=== PATIENT | female | born 1940 | race Caucasian/White ===

== ENCOUNTER 2017-06-16 01:31 | Observation (INO) | payer MEDICARE ==
[~2017-06-16] VITALS: Ht 157.5 cm; Wt 68.7 kg
[2017-06-16] VITALS (23 sets, daily range): BP systolic 105–154; BP diastolic 54–97; PULSE 44–142; RESP 16–32; TEMP 97.4–97.9; O2SAT 96–100
[~2017-06-16 01:31] MED LIST: ASPI81 PO; BENI40TA30 PO; COUM5TAB PO; HYDR12.56 PO; PRED20 PO; PROP150T PO; SYNT25TA PO; ZITH250T PO; ZOCO40TA PO
[2017-06-16] MEDS ORDERED: DILTIAZEM HCL 25 MG/5 ML VIAL ONE (01:41)
[2017-06-16] MEDS ORDERED: DILTIAZEM HCL 25 MG/5 ML VIAL IV PUSH ONE (01:45)
[2017-06-16] MEDS ORDERED: SODIUM CHLORIDE 0.9% FLUSH 10 ML FLUSH IV FLUSH PRN ×2 (01:45→03:45)
[2017-06-16] MEDS ORDERED: DILTIAZEM INJ 125 MG in SODIUM CHLORIDE 0.9% INJ 100 ML IV PRN (01:45)
--- NOTE | 2017-06-16 01:58 | PD ---
HPI Chief Complaint: Cardiac Complaint Time Seen by Provider: 01:41 Travel History International Travel<30 days: No Contact w/Intl Traveler<30days: No Traveled to known affect area: No History of Present Illness HPI The patient is a 76-year-old female with a history of paroxysmal atrial fibrillation who at 1130 noticed atrial fibrillation tonight. Normally, she can convert the atrial fibrillation into sinus rhythm by doing vasovagal maneuvers. It did not work tonight. The patient states she takes her medications correctly. She does take Coumadin and Rythmol. The only new medicine the patient takes is atorvastatin. He states she had an episode last night and one tonight. The episode tonight would not break to normal sinus rhythm. The episode last night converted quickly to normal sinus rhythm according to the patient. PFSH Past Medical History Atrial Fibrillation: Yes High Cholesterol: Yes Hypertension: Yes Immunizations Current: Yes Past Surgical History Appendectomy: Yes Cholecystectomy: Yes Social History Alcohol Use: Yes (WINE) Tobacco Use: No (QUIT 45 YEARS AGO) Substance Use: No Allergies-Medications (Allergen,Severity, Reaction): Coded Allergies: morphine (Unverified Allergy, Severe, VOMITING, 06/16/17) albuterol (Unverified Adverse Reaction, Severe, A-FIB, 06/16/17) aspirin (Unverified Adverse Reaction, Severe, AFIB, 06/16/17) caffeine (Unverified Adverse Reaction, Severe, AFIB, 06/16/17) Reported Meds & Prescriptions Reported Meds & Active Scripts Active Reported Bisoprolol (Bisoprolol Fumarate) 5 Mg Tab 5 Mg PO DAILY Atorvastatin (Atorvastatin Calcium) 40 Mg Tab 40 Mg PO HS Warfarin 5 Mg Tab 5 Mg PO DAILY Aspirin Low Dose (Aspirin) 81 Mg Chew 81 Mg CHEW DAILY Levothyroxine (Levothyroxine Sodium) 25 Mcg Tab 25 Mcg PO DAILY Losartan (Losartan Potassium) 100 Mg Tab 100 Mg PO DAILY Propafenone (Propafenone HCl) 150 Mg Tab 150 Mg PO Q8HR Glucosamine 1,500 Mg Tab 1,500 Mg PO DAILY Review of Systems Except as stated in HPI: all other systems reviewed are Neg Physical Exam Narrative GENERAL: The patient is alert, oriented 3 in apparent distress minimal with her palpitations and minimal shortness of breath. The blood pressure is 106/62 now, the original blood pressure 154/95. Heart rate initially 140, now 96. 96 % oximetry and respirations 20. SKIN: Focused skin assessment warm/dry. HEAD: Atraumatic. Normocephalic. EYES: Pupils equal and round. No scleral icterus. No injection or drainage. ENT: No nasal bleeding or discharge. Mucous membranes pink and moist. NECK: Trachea midline. No JVD. CARDIOVASCULAR: Regular rate and rhythm. No murmur appreciated. RESPIRATORY: No accessory muscle use. Clear to auscultation. Breath sounds equal bilaterally. GASTROINTESTINAL: Abdomen soft, non-tender, nondistended. Hepatic and splenic margins not palpable. MUSCULOSKELETAL: No obvious deformities. No clubbing. No cyanosis. No edema. NEUROLOGICAL: Awake and alert. No obvious cranial nerve deficits. Motor grossly within normal limits. Normal speech. PSYCHIATRIC: Appropriate mood and affect; insight and judgment normal. Data Data Last Documented VS Vital Signs Date Time Temp Pulse Resp B/P (MAP) Pulse Ox O2 Delivery O2 Flow Rate FiO2 06/16/17 02:06 110 114/79 06/16/17 02:00 20 06/16/17 01:55 100 Nasal Cannula 2.00 Orders Orders Diltiazem Inj (Cardizem Inj) (06/16/17 01:41) Ecg Monitoring (06/16/17 01:41) Blood Pressure (06/16/17 01:41) Iv Access Insert/Monitor (06/16/17 01:41) Oximetry (06/16/17 01:41) Vital Signs (06/16/17 01:41) Diltiazem Inj (Cardizem Inj) (06/16/17 01:45) Diltiazem Inj (Cardizem Inj) (06/16/17 01:45) Sodium Chloride 0.9% Flush (Ns Flush) (06/16/17 01:45) Electrocardiogram (06/16/17 01:58) Basic Metabolic Panel (Bmp) (06/16/17 01:58) B-Type Natriuretic Peptide (06/16/17 01:58) Complete Blood Count With Diff (06/16/17 01:58) Magnesium (Mg) (06/16/17 01:58) Prothrombin Time / Inr (Pt) (06/16/17 01:58) Troponin I (06/16/17 01:58) Oxygen Administration (06/16/17 01:58) Sodium Chloride 0.9% Flush (Ns Flush) (06/16/17 02:00) Chest, Pa & Lat (06/16/17 01:58) Place In Observation (06/16/17 ) Vital Signs (Adult) Q4H (06/16/17 03:43) Activity Oob With Assistance (06/16/17 03:43) Diet Heart Healthy (06/16/17 Breakfast) Sodium Chloride 0.9% Flush (Ns Flush) (06/16/17 03:45) Sodium Chloride 0.9% Flush (Ns Flush) (06/16/17 09:00) Acetaminophen (Tylenol) (06/16/17 03:45) Ondansetron Inj (Zofran Inj) (06/16/17 03:45) Basic Metabolic Panel (Bmp) (06/17/17 06:00) Complete Blood Count With Diff (06/17/17 06:00) Creatine Kinase (Cpk) (06/16/17 08:00) Creatine Kinase (Cpk) (06/16/17 14:00) Troponin I (06/16/17 08:00) Troponin I (06/16/17 14:00) Electrocardiogram (06/16/17 08:00) Electrocardiogram (06/16/17 14:00) Heparin Inj (Heparin Inj) (06/16/17 03:45) Naloxone Inj (Narcan Inj) (06/16/17 03:45) Docusate Sodium-Senna (Clarissa-Colace) (06/16/17 09:00) Magnesium Hydroxide Liq (Milk Of Magnesi (06/16/17 03:45) Sennosides (Senokot) (06/16/17 03:45) Bisacodyl Supp (Dulcolax Supp) (06/16/17 03:45) Lactulose Liq (Lactulose Liq) (06/16/17 03:45) Aspirin Chew (Aspirin Chew) (06/16/17 09:00) Atorvastatin (Lipitor) (06/16/17 21:00) Levothyroxine (Synthroid) (06/16/17 09:00) Losartan (Cozaar) (06/16/17 09:00) Propafenone (Rythmol) (06/16/17 06:00) Warfarin (Coumadin) (06/16/17 09:00) (Nf) Bisoprolol (06/16/17 09:00) Admit Order (Ed Use Only) (06/16/17 03:47) Labs Laboratory Tests Test 06/16/17 02:00 White Blood Count 7.2 TH/MM3 Red Blood Count 4.58 MIL/MM3 Hemoglobin 13.8 GM/DL Hematocrit 42.6 % Mean Corpuscular Volume 92.9 FL Mean Corpuscular Hemoglobin 30.1 PG Mean Corpuscular Hemoglobin Concent 32.4 % Red Cell Distribution Width 13.0 % Platelet Count 266 TH/MM3 Mean Platelet Volume 8.9 FL Neutrophils (%) (Auto) 50.3 % Lymphocytes (%) (Auto) 39.6 % Monocytes (%) (Auto) 7.3 % Eosinophils (%) (Auto) 1.3 % Basophils (%) (Auto) 1.5 % Neutrophils # (Auto) 3.6 TH/MM3 Lymphocytes # (Auto) 2.9 TH/MM3 Monocytes # (Auto) 0.5 TH/MM3 Eosinophils # (Auto) 0.1 TH/MM3 Basophils # (Auto) 0.1 TH/MM3 CBC Comment DIFF FINAL Differential Comment Prothrombin Time 18.1 SEC Prothromb Time International Ratio 1.8 RATIO Blood Urea Nitrogen 18 MG/DL Creatinine 0.83 MG/DL Random Glucose 99 MG/DL Calcium Level 9.1 MG/DL Magnesium Level 2.2 MG/DL Sodium Level 140 MEQ/L Potassium Level 3.6 MEQ/L Chloride Level 104 MEQ/L Carbon Dioxide Level 28.7 MEQ/L Anion Gap 7 MEQ/L Estimat Glomerular Filtration Rate 67 ML/MIN Troponin I LESS THAN 0.02 NG/ML B-Type Natriuretic Peptide 111 PG/ML MDM Medical Decision Making Medical Screen Exam Complete: Yes Emergency Medical Condition: Yes Medical Record Reviewed: Yes Interpretation(s) The initial EKG showed atrial fibrillation with rapid ventricular response around 119. It is now 0313 and the patient's heart rate is 92. She is on a Cardizem drip at 5 mL's per hour. Her blood pressure is stable at 129/69. The troponin I is normal in the basic metabolic profile is normal except for a GFR of 67. The BNP is 111. The CBC is normal. The chest x-ray shows no acute cardiopulmonary disease. Differential Diagnosis Atrial fibrillation with rapid ventricular response, acute coronary syndrome, congestive heart failure Narrative Course The patient has atrial fibrillation and requires a Cardizem drip at a low level. There is no evidence of congestive heart failure or acute coronary syndrome Physician Communication Physician Communication I discussed the patient with Dr. Chandler, the patient will be admitted to her for 23 hour observation. Diagnosis Primary Impression: Atrial fibrillation with RVR Admitting Information Admitting Physician Requests: Observation Regan Mccarthy MD Jun 16, 2017 01:58
[2017-06-16] MEDS ORDERED: SODIUM CHLORIDE 0.9% FLUSH 10 ML FLUSH IVF PRN (02:00)
[2017-06-16 02:11] LABS: AUTOMATED NEUTROPHIL # 3.6 TH/MM3 (1.8-7.7); BASOPHIL # 0.1 TH/MM3 (0-0.2); BASOPHIL % 1.5 % (0.0-2.0); EOSINOPHIL # 0.1 TH/MM3 (0-0.4); EOSINOPHIL % 1.3 % (0.0-4.0); HEMATOCRIT 42.6 % (35.0-46.0); HEMOGLOBIN 13.8 GM/DL (11.6-15.3); LYMPH % 39.6 % (9.0-44.0); LYMPHOCYTE # 2.9 TH/MM3 (1.0-4.8); MEAN CELL VOLUME 92.9 FL (80.0-100.0); MEAN CORPUSCULAR HEMOGLOBIN 30.1 PG (27.0-34.0); MEAN CORPUSCULAR HGB CONC 32.4 % (32.0-36.0); MEAN PLATELET VOLUME 8.9 FL (7.0-11.0); MONO % 7.3 % (0.0-8.0); MONOCYTE # 0.5 TH/MM3 (0-0.9); NEUT % 50.3 % (16.0-70.0); PLATELET COUNT 266 TH/MM3 (150-450); RED BLOOD COUNT 4.58 MIL/MM3 (4.00-5.30); WHITE BLOOD COUNT 7.2 TH/MM3 (4.0-11.0)
[2017-06-16 02:21] LABS: CHLORIDE 104 MEQ/L (98-107); SODIUM (NA) 140 MEQ/L (136-145)
[2017-06-16 02:24] LABS: BICARBONATE 28.7 MEQ/L (21.0-32.0); BLOOD UREA NITROGEN 18 MG/DL (7-18); CALCIUM 9.1 MG/DL (8.5-10.1); GLUCOSE,RANDOM 99 MG/DL (74-106); INTERNATIONAL NORMALIZED RATIO 1.8 RATIO; MAGNESIUM 2.2 MG/DL (1.5-2.5); PROTHROMBIN TIME - PATIENT 18.1 SEC (9.8-11.6)
[2017-06-16 02:28] LABS: CREATININE 0.83 MG/DL (0.50-1.00); GLOMERULAR FILTRATION RATE 67 ML/MIN (>89)
[2017-06-16 02:32] LABS: TROPONIN I LESS THAN 0.02 NG/ML (0.02-0.05)
--- NOTE | 2017-06-16 02:38 | RADRPT ---
EXAM DATE/TIME: 06/16/2017 02:12 [facility] COMPARISON: No previous studies available for comparison. INDICATIONS : Irregular heart rate for 3 hours MEDICAL HISTORY : Afib SURGICAL HISTORY : None. ENCOUNTER: Initial ACUITY: 1 day PAIN SCORE: 0/10 LOCATION: Bilateral chest FINDINGS: PA and lateral views of the chest demonstrate a normal-sized cardiac silhouette. There is no effusion , consolidation, or pneumothorax. The bones and soft tissues demonstrate no acute abnormality. There are degenerative changes of the thoracic spine. EKG lines overlie the patient. CONCLUSION: No acute cardiopulmonary abnormality is identified. Vijay Nelson MD on June 16, 2017 at 2:36 Board Certified Radiologist. This report was verified electronically.
[2017-06-16] MEDS ORDERED: LOSA100T PO (02:50)
[2017-06-16] MEDS ORDERED: ATOR40TA16 PO (02:50)
[2017-06-16] MEDS ORDERED: GLUC15009 PO (02:50)
[2017-06-16] MEDS ORDERED: WARF-23 PO (02:50)
[2017-06-16] MEDS ORDERED: PROP150T PO (02:50)
[2017-06-16] MEDS ORDERED: BISO5TAB5 PO (02:50)
[2017-06-16] MEDS ORDERED: ASPI81CH6 CHEW (02:50)
[2017-06-16] MEDS ORDERED: LEVO25TA4 PO (02:50)
[2017-06-16] MEDS ORDERED: ONDANSETRON HCL 4 MG/2 ML VIAL IVP PRN (03:45)
[2017-06-16] MEDS ORDERED: NALOXONE HCL 0.4 MG/ML AMP IV PUSH PRN (03:45)
[2017-06-16] MEDS ORDERED: LACTULOSE SYRUP 20 GM/30 ML CUP PO PRN (03:45)
[2017-06-16] MEDS ORDERED: BISACODYL 10 MG SUPP RECTAL PRN (03:45)
[2017-06-16] MEDS ORDERED: MAGNESIUM HYDROXIDE SUSP 30 ML CUP PO PRN (03:45)
[2017-06-16] MEDS ORDERED: SENNOSIDES 8.6 MG TAB PO PRN (03:45)
[2017-06-16] MEDS ORDERED: ACETAMINOPHEN 325 MG TAB PO PRN (03:45)
[2017-06-16] MEDS ORDERED: DO NOT ADM ANY ANTICOAGULANT DRUGS OTHER PRN (04:00)
[2017-06-16] MEDS ORDERED: HEPARIN SODIUM - SQ 10,000 UNITS/ML VIAL SQ SCH (06:00)
[2017-06-16] MEDS ORDERED: LEVOTHYROXINE SODIUM 25 MCG TAB PO SCH (06:00)
[2017-06-16] MEDS: PROPAFENONE HCL 150 MG TAB PO SCH ×2 (06:00→13:36)
[2017-06-16 08:38] LABS: TROPONIN I LESS THAN 0.02 NG/ML (0.02-0.05)
[2017-06-16] MEDS ORDERED: BISOPROLOL 5 MG PO SCH (09:00)
[2017-06-16] MEDS ORDERED: LOSARTAN 50 MG TAB PO SCH (09:00)
[2017-06-16] MEDS ORDERED: ASPIRIN 81 MG CHEW TAB CHEW SCH (09:00)
[2017-06-16] MEDS: DOCUSATE SODIUM 50 MG/SENNA 8.6 MG TAB PO SCH ×2 (09:26→19:36)
[2017-06-16] MEDS: SODIUM CHLORIDE 0.9% FLUSH 10 ML FLUSH IV FLUSH SCH ×2 (09:27→19:34)
[2017-06-16 10:31] LABS: MAGNESIUM 2.1 MG/DL (1.5-2.5)
--- NOTE | 2017-06-16 10:33 | HHI.HP ---
[facility] Nahum Page MD Admission Diagnosis Atrial fibrillation with rapid ventricular response Diagnoses: (1) Hypertension Diagnosis: Secondary (2) Osteoarthritis Diagnosis: Secondary (3) Hypercholesterolemia Diagnosis: Secondary (4) Chronic anticoagulation Diagnosis: Principal (5) Atrial fibrillation with RVR Diagnosis: Principal (6) Hypothyroidism Diagnosis: Secondary Chief Complaint: Palpitations that did not stop after vasovagal Travel History International Travel<30 Days: No Contact w/Intl Traveler <30 Da: No Traveled to Known Affected Are: No History of Present Illness Patient is a 76-year-old female with a history of paroxysmal atrial fibrillation who at 1130 last night noticed atrial fibrillation. Normally, she can convert the atrial fibrillation into sinus rhythm by doing vasovagal maneuvers, unfortunately this was not successful. It did not work tonight, so the patient decided to come to the emergency room for further evaluation. The patient states she takes her medications correctly. She does take Coumadin and Rythmol. The only new medicine the patient takes is atorvastatin. SHe states she had an episode last night and one tonight. The episode tonight would not break to normal sinus rhythm. The episode last night converted quickly to normal sinus rhythm according to the patient. The previous nights event was able to be broken with a vasovagal maneuver. The one last night was unable to be broken and therefore she is here in the emergency department and then therefore listed observation Had been on a Cardizem drip which has been stopped Dr. LEONARDO has been counseled of cardiology An echocardiogram will give Lovenox 70 mg subcu now since her INR is only 1.8 Review of Systems Constitutional: DENIES: Diaphoretic episodes, Fatigue, Fever, Weight gain, Weight loss, Chills, Dizziness, Change in appetite, Night Sweats Endocrine: DENIES: Abnorml menstrual pattern, Heat/cold intolerance, Polydipsia , Polyuria, Polyphagia Eyes: DENIES: Blurred vision, Diplopia, Eye inflammation, Eye pain, Vision loss , Photosensitivity Ears, nose, mouth, throat: DENIES: Tinnitus, Hearing loss, Vertigo, Nasal discharge, Oral lesions, Throat pain, Hoarseness, Ear Pain, Running Nose Respiratory: DENIES: Apneas, Cough, Snoring, Wheezing, Hemoptysis, Sputum production Cardiovascular: COMPLAINS OF: Palpitations, DENIES: Chest pain, Syncope, Dyspnea on Exertion, PND, Lower Extremity Edema, Orthopnea Gastrointestinal: DENIES: Abdominal pain, Black stools, Bloody stools, Constipation, Diarrhea, Nausea, Vomiting, Difficulty Swallowing Genitourinary: DENIES: Abnormal vaginal bleeding, Dysmenorrhea, Dyspareunia, Sexual dysfunction Musculoskeletal: DENIES: Joint pain, Muscle aches, Stiffness, Joint Swelling, Back pain, Neck pain Integumentary: DENIES: Abnormal pigmentation, Pruritus, Rash, Nail changes, Breast masses, Breast skin changes Hematologic/lymphatic: DENIES: Bruising, Lymphadenopathy Immunologic/allergic: DENIES: Eczema, Urticaria Neurologic: DENIES: Abnormal gait, Headache, Localized weakness, Paresthesias, Seizures, Speech Problems, Tremor Psychiatric: DENIES: Anxiety, Confusion, Mood changes, Depression, Hallucinations, Agitation, Suicidal Ideation, Homicidal Ideation Except as stated in HPI: all other systems reviewed are Neg Past Family Social History Past Medical History Atrial fibrillation paroxysmal hypothyroidism Chronic anticoagulation Osteoarthritis Past Surgical History History of sections Cholecystectomy Left total knee Right partial knee repair Bilateral carpal tunnel syndrome repair Cholecystectomy appendectomy Reported Medications Reported Meds & Active Scripts Active Reported Bisoprolol (Bisoprolol Fumarate) 5 Mg Tab 5 Mg PO DAILY Atorvastatin (Atorvastatin Calcium) 40 Mg Tab 40 Mg PO HS Warfarin 5 Mg Tab 5 Mg PO DAILY Aspirin Low Dose (Aspirin) 81 Mg Chew 81 Mg CHEW DAILY Levothyroxine (Levothyroxine Sodium) 25 Mcg Tab 25 Mcg PO DAILY Losartan (Losartan Potassium) 100 Mg Tab 100 Mg PO DAILY Propafenone (Propafenone HCl) 150 Mg Tab 150 Mg PO Q8HR Glucosamine 1,500 Mg Tab 1,500 Mg PO DAILY Allergies: Coded Allergies: morphine (Unverified Allergy, Severe, VOMITING, 06/16/17) albuterol (Unverified Adverse Reaction, Severe, A-FIB, 06/16/17) caffeine (Unverified Adverse Reaction, Severe, AFIB, 06/16/17) Active Ordered Medications Current Medications Diltiazem HCl (Cardizem Inj) 25 mg STK-MED ONCE .ROUTE ; Start 06/16/17 at 01:41 ; Stop 06/16/17 at 01:42; Status DC Diltiazem HCl 125 mg/Sodium Chloride 125 ml @ 5 mls/hr TITRATE PRN IV tachycardia Last administered on 06/16/17at 02:06; Start 06/16/17 at 01:45; Stop at 06:24; Status DC Diltiazem HCl (Cardizem Inj) 20 mg BOLUS ONCE IV PUSH Last administered on 06/16at 01:56; Start 06/16/17 at 01:45; Stop 06/16/17 at 01:46; Status DC Sodium Chloride (NS Flush) 2 ml UNSCH PRN IV FLUSH FLUSH AFTER USING IV ACCESS ; Start 06/16/17 at 01:45; Stop 06/16/17 at 04:03; Status DC Sodium Chloride (NS Flush) 2 ml UNSCH PRN IVF FLUSH AFTER USING IV ACCESS; Start 06/16/17 at 02:00; Stop 06/16/17 at 04:02; Status DC Sodium Chloride (NS Flush) 2 ml UNSCH PRN IV FLUSH FLUSH AFTER USING IV ACCESS ; Start 06/16/17 at 03:45 Sodium Chloride (NS Flush) 2 ml BID IV FLUSH Last administered on 06/16/17at 09: 27; Start 06/16/17 at 09:00 Acetaminophen (Tylenol) 650 mg Q4H PRN PO TEMP > 100.4 Last administered on 06/16at 07:14; Start 06/16/17 at 03:45 Ondansetron HCl (Zofran Inj) 4 mg Q6H PRN IVP NAUSEA OR VOMITING; Start at 03:45 Heparin Sodium (Porcine) (Heparin Inj) 5,000 units Q8HR SQ ; Start 06/16/17 at 06 :00; Stop 06/16/17 at 06:00; Status DC Naloxone HCl (Narcan Inj) 0.4 mg UNSCH PRN IV PUSH SEE LABEL COMMENTS; Start at 03:45 Senna/Docusate Sodium (Clarissa-Colace) 1 tab BID PO Last administered on 06/16/17at 09:26; Start 06/16/17 at 09:00 Magnesium Hydroxide (Milk Of Magnesia Liq) 30 ml Q12H PRN PO Mild constipation ; Start 06/16/17 at 03:45 Sennosides (Senokot) 17.2 mg Q12H PRN PO Moderate constipation; Start 06/16/17 at 03:45 Bisacodyl (Dulcolax Supp) 10 mg DAILY PRN RECTAL SEVERE CONSITIPATION; Start at 03:45 Lactulose (Lactulose Liq) 30 ml DAILY PRN PO SEVERE CONSITIPATION; Start at 03:45 Aspirin (Aspirin Chew) 81 mg DAILY CHEW Last administered on 06/16/17at 09:26; Start 06/16/17 at 09:00 Atorvastatin Calcium (Lipitor) 40 mg HS PO ; Start 06/16/17 at 21:00 Levothyroxine Sodium (Synthroid) 25 mcg DAILY@0600 PO Last administered on at 07:12; Start 06/16/17 at 06:00 Losartan Potassium (Cozaar) 100 mg DAILY PO Last administered on 06/16/17at 09:27 ; Start 06/16/17 at 09:00 Propafenone HCl (Rythmol) 150 mg Q8HR PO Last administered on 06/16/17at 06:00; Start 06/16/17 at 06:00 Warfarin Sodium (Coumadin) 5 mg DAILY@1600 PO ; Start 06/16/17 at 16:00 Patient Own Medication PT OWN MED: NON-FORMULARY D... DAILY PO ; Start 06/16/17 at 09:00; Status Future Hold Miscellaneous Information ALL NURSING DEPARTME... UNSCH PRN OTHER SEE LABEL COMMENTS; Start 06/16/17 at 04:00; Stop 06/17/17 at 03:59 Patient Medication Teaching (Coumadin Booklet) 1 ONCE ONCE OTHER ; Start at 16:00; Stop 06/16/17 at 16:01 Family History Father at 59 with heart disease and hypertension mother at age 81 with CVA and Alzheimer's Social History Denies any tobacco or illicits drinks red wine couple glasses every night Physical Exam Vital Signs Vital Signs Date Time Temp Pulse Resp B/P (MAP) Pulse Ox O2 Delivery O2 Flow Rate FiO2 06/16/17 09:27 21 06/16/17 08:27 97.4 59 26 137/66 (89) 98 06/16/17 08:25 56 17 124/63 (83) 96 06/16/17 08:00 97.4 56 26 137/66 (89) 98 06/16/17 07:05 97 Nasal Cannula 2.00 06/16/17 07:05 56 16 118/69 (85) 97 Nasal Cannula 2.00 06/16/17 06:37 44 20 108/54 (72) 98 Nasal Cannula 2.00 06/16/17 06:15 52 20 115/64 (81) 100 Nasal Cannula 2.00 06/16/17 06:00 52 20 107/79 (88) 98 06/16/17 05:30 98 20 116/71 (86) 98 Nasal Cannula 2.00 06/16/17 05:00 96 20 112/72 (85) 98 06/16/17 04:30 100 20 117/78 (91) 06/16/17 04:00 98 20 116/97 (103) 06/16/17 03:28 101 20 127/76 (93) 97 06/16/17 03:15 110 20 97 Nasal Cannula 2.00 06/16/17 02:58 96 20 129/69 (89) 96 06/16/17 02:06 110 114/79 06/16/17 02:00 94 20 106/62 (77) 06/16/17 01:55 112 16 105/62 (76) 100 Nasal Cannula 2.00 06/16/17 01:55 99 Nasal Cannula 2.00 06/16/17 01:50 142 20 154/95 (114) 96 06/16/17 01:40 140 20 154/95 (114) 96 Physical Exam GENERAL: This is a well-nourished, well-developed patient, in no apparent distress. SKIN: No rashes, ecchymoses or lesions. Cool and dry. HEAD: Atraumatic. Normocephalic. No temporal or scalp tenderness. EYES: Pupils equal round and reactive. Extraocular motions intact. No scleral icterus. No injection or drainage. ENT: Nose without bleeding, purulent drainage or septal hematoma. Throat without erythema, tonsillar hypertrophy or exudate. Uvula midline. Airway patent. NECK: Trachea midline. No JVD or lymphadenopathy. Supple, nontender, no meningeal signs. CARDIOVASCULAR: Regular rate and rhythm without murmurs, gallops, or rubs. S1- S2 no S3 or S4 RESPIRATORY: Clear to auscultation. Breath sounds equal bilaterally. No wheezes , rales, or rhonchi. GASTROINTESTINAL: Abdomen soft, non-tender, nondistended. No hepato-splenomegaly , or palpable masses. No guarding. MUSCULOSKELETAL: Extremities without clubbing, cyanosis, or edema. No joint tenderness, effusion, or edema noted. No calf tenderness. Negative Homans sign bilaterally. NEUROLOGICAL: Awake and alert. Cranial nerves II through XII intact. Motor and sensory grossly within normal limits. Five out of 5 muscle strength in all muscle groups. Normal speech. Insight and judgment is good Mood and behavior is appropriate Laboratory Laboratory Tests Test 06/16/17 02:00 06/16/17 08:08 White Blood Count 7.2 Red Blood Count 4.58 Hemoglobin 13.8 Hematocrit 42.6 Mean Corpuscular Volume 92.9 Mean Corpuscular Hemoglobin 30.1 Mean Corpuscular Hemoglobin Concent 32.4 Red Cell Distribution Width 13.0 Platelet Count 266 Mean Platelet Volume 8.9 Neutrophils (%) (Auto) 50.3 Lymphocytes (%) (Auto) 39.6 Monocytes (%) (Auto) 7.3 Eosinophils (%) (Auto) 1.3 Basophils (%) (Auto) 1.5 Neutrophils # (Auto) 3.6 Lymphocytes # (Auto) 2.9 Monocytes # (Auto) 0.5 Eosinophils # (Auto) 0.1 Basophils # (Auto) 0.1 CBC Comment DIFF FINAL Differential Comment Prothrombin Time 18.1 Prothromb Time International Ratio 1.8 Blood Urea Nitrogen 18 Creatinine 0.83 Random Glucose 99 Calcium Level 9.1 Magnesium Level 2.2 Sodium Level 140 Potassium Level 3.6 Chloride Level 104 Carbon Dioxide Level 28.7 Anion Gap 7 Estimat Glomerular Filtration Rate 67 Troponin I LESS THAN 0.02 LESS THAN 0.02 B-Type Natriuretic Peptide 111 Total Creatine Kinase 82 Result Diagram: 06/16/17 0200 06/16/17199 Imaging Last Impressions Chest X-Ray 06/16/17 0158 Signed Impressions: Service Date/Time: June 02:12 - CONCLUSION: No acute cardiopulmonary abnormality is identified. MD Stephen Martinez VTE Risk Assessment Stephen VTE Risk Assessment: Mod/High Risk (score >= 2) VTE Pharm Contraindication: Coagulopathy,INR elevated Caprini Risk Assessment Model Point Value = 1 Point Value = 2 Point Value = 3 Point Value = 5 Age 41-60 Minor surgery BMI > 25 kg/m2 Swollen legs Varicose veins or History of unexplained or recurrent spontaneous Oral contraceptives or hormone replacement Sepsis (< 1 month) Serious lung disease, including pneumonia (< 1 month) Abnormal pulmonary function Acute myocardial infarction Congestive heart failure (< 1 month) History of inflammatory bowel disease Medical patient at bed rest Age 61-74 Arthroscopic surgery Major open surgery (> 45 min) Laparoscopic surgery (> 45 min) Malignancy Confined to bed (> 72 hours) Immobilizing plaster cast Central venous access Age >= 75 History of VTE Family history of VTE Factor V Leiden Prothrombin [id number] Lupus anticoagulant Anticardiolipin antibodies Elevated serum homocysteine Heparin-induced thrombocytopenia Other congenital or acquired thrombophilia Stroke (< 1 month) Elective arthroplasty Hip, pelvis, or leg fracture Acute spinal cord injury (< 1 month) Prophylaxis Regimen Total Risk Factor Score Risk Level Prophylaxis Regimen 0-1 Low Early ambulation 2 Moderate Order ONE of the following: *Sequential Compression Device (SCD) *Heparin 5000 units SQ BID 3-4 Higher Order ONE of the following medications: *Heparin 5000 units SQ TID *Enoxaparin/Lovenox 40 mg SQ daily (WT < 150 kg, CrCl > 30 mL/min) *Enoxaparin/Lovenox 30 mg SQ daily (WT < 150 kg, CrCl > 10-29 mL/min) *Enoxaparin/Lovenox 30 mg SQ BID (WT < 150 kg, CrCl > 30 mL/min) AND/OR *Sequential Compression Device (SCD) 5 or more Highest Order ONE of the following medications: *Heparin 5000 units SQ TID (Preferred with Epidurals) *Enoxaparin/Lovenox 40 mg SQ daily (WT < 150 kg, CrCl > 30 mL/min) *Enoxaparin/Lovenox 30 mg SQ daily (WT < 150 kg, CrCl > 10-29 mL/min) *Enoxaparin/Lovenox 30 mg SQ BID (WT < 150 kg, CrCl > 30 mL/min) AND *Sequential Compression Device (SCD) Assessment and Plan Assessment and Plan Atrial fibrillation paroxysmal on chronic Rythmol and chronic Coumadin and bisoprolol Continue anticoagulation We will add Lovenox 70 mg subcu twice daily since INR is only 1.8 and patient had been in A. 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
[2017-06-16 10:35] LABS: PHOSPHORUS 3.6 MG/DL (2.5-4.9)
[2017-06-16] MEDS ORDERED: NON-FORMULARY DRUG (Glucosamine 1,500 MG) PO SCH (10:45)
[2017-06-16] MEDS ORDERED: ENOXAPARIN SODIUM 80 MG/0.8 ML SYRINGE SQ SCH (11:00)
[2017-06-16 11:43] LABS: FREE T4 1.15 NG/DL (0.76-1.46)
[2017-06-16 14:49] LABS: TROPONIN I LESS THAN 0.02 NG/ML (0.02-0.05)
[2017-06-16] MEDS ORDERED: WARFARIN SOD 5 MG TAB PO SCH (16:00)
[2017-06-16 16:38] LABS: HEMOGLOBIN A1C 5.9 % (4.3-6.0)
--- NOTE | 2017-06-16 18:17 | EKG ---
Date Performed: 06/16/2017 Time Performed: 08:01:35 PTAGE: 76 years EKG: SINUS BRADYCARDIA INCOMPLETE RIGHT BUNDLE BRANCH BLOCK LEFT ANTERIOR FASCICULAR BLOCK [facility] CRITERIA FOR LVH POSSIBLE SEPTAL MYOCARDIAL INFARCTION ABNORMAL ECG PREVIOUS TRACING : 06/16/2017 01.46 No significant change from previous tracing noted. DOCTOR: Roderick Harvey Interpretating Date/Time 06/16/2017 18:16:08
--- NOTE | 2017-06-16 18:21 | EKG ---
Date Performed: 06/16/2017 Time Performed: 06:08:22 PTAGE: 76 years EKG: SINUS BRADYCARDIA INCOMPLETE RIGHT BUNDLE BRANCH BLOCK LEFT ANTERIOR FASCICULAR BLOCK [place]OL[place] CRITERIA FOR LVH POSSIBLE SEPTAL MYOCARDIAL INFARCTION ABNORMAL ECG PREVIOUS TRACING : 06/16/2017 03.58 Compared to previous tracing, Sinus rhythm has replaced atrial fibrillation. DOCTOR: Roderick Harvey Interpretating Date/Time 06/16/2017 18:20:33
--- NOTE | 2017-06-16 18:32 | EKG ---
Date Performed: 06/16/2017 Time Performed: 03:58:40 PTAGE: 76 years EKG: ATRIAL FIBRILLATION LEFT ANTERIOR FASCICULAR BLOCK [place] CRITERIA FOR LVH NONSPECIFIC T-W AVE ABNORMALITY ABNORMAL ECG NO PREVIOUS TRACING DOCTOR: Roderick Harvey Interpretating Date/Time 06/16/2017 18:30:22
--- NOTE | 2017-06-16 18:34 | EKG ---
Date Performed: 06/16/2017 Time Performed: 01:37:55 PTAGE: 76 years EKG: ATRIAL FIBRILLATION WITH RAPID VENTRICULAR RESPONSE LEFT ANTERIOR FASCICULAR BLOCK VOLTAGE CRITERIA FOR LVH ST/T-WAVE ABNORMALITY, CONSIDER HIGH LATERAL ISCHEMIA ABNORMAL ECG PREVIOUS TRACING : 08/05/2008 19.30 Compared to previous tracing, atrial fibrillation has repla arlene Sinus rhythm , heart rate has increased. DOCTOR: Roderick Harvey Interpretating Date/Time 06/16/2017 18:33:50
--- NOTE | 2017-06-16 18:34 | EKG ---
Date Performed: 06/16/2017 Time Performed: 01:46:50 PTAGE: 76 years EKG: ATRIAL FIBRILLATION WITH RAPID VENTRICULAR RESPONSE LEFT ANTERIOR FASCICULAR BLOCK POSSIBLE LEFT VENTRICULAR HYPERTROPHY ST/T-WAVE ABNORMALITY, CONSIDER HIGH LATERAL ISCHEMIA ABNORMAL ECG PREVIOUS TRACING : 06/16/2017 01.37 No significant change from previous tracing noted. DOCTOR: Roderick Harvey Interpretating Date/Time 06/16/2017 18:33:15
[2017-06-16] MEDS ORDERED: PROPAFENONE HCL 150 MG TAB PO ONE (20:45)
[2017-06-16] MEDS ORDERED: POTASSIUM CHLORIDE 20 MEQ CONTROLLED RELEASE TAB PO ONE (20:45)
[2017-06-16] MEDS ORDERED: ATORVASTATIN 40 MG TAB PO SCH (21:00)
--- NOTE | 2017-06-17 00:03 | EKG ---
Date Performed: 06/16/2017 Time Performed: 13:53:46 PTAGE: 76 years EKG: Sinus rhythm LEFT ANTERIOR FASCICULAR BLOCK VOLTAGE CRITERIA FOR LVH NONSPECIFIC T-WAVE ABNORMALITY ABNORMAL ECG PREVIOUS TRACING : 06/16/2017 08.01 Since the prior tracing, there has been no significant jose DOCTOR: Aamir Howell Interpretating Date/Time 06/17/2017 00:03:06
--- NOTE | 2017-06-17 08:25 | HHI.DS ---
Discharge Summary Admission Date Jun 16, 2017 at 03:48 Discharge Date: Jun 16, 2017 Admitting Diagnosis Atrial fibrillation with rapid ventricular response (1) Hypertension ICD Code: I10 - Essential (primary) hypertension Diagnosis: Secondary (2) Osteoarthritis ICD Code: M19.90 - Unspecified osteoarthritis, unspecified site Diagnosis: Secondary (3) Hypercholesterolemia ICD Code: E78.00 - Pure hypercholesterolemia, unspecified Diagnosis: Secondary (4) Chronic anticoagulation ICD Code: Z79.01 - electroneurodiagnostic technologist (current) use of anticoagulants Diagnosis: Principal (5) Atrial fibrillation with RVR ICD Code: I48.91 - Unspecified atrial fibrillation Diagnosis: Principal Status: Acute (6) Hypothyroidism ICD Code: E03.9 - Hypothyroidism, unspecified Diagnosis: Secondary Procedures NONE Brief History - From Admission Patient is a 76-year-old female with a history of paroxysmal atrial fibrillation who at 1130 last night noticed atrial fibrillation. Normally, she can convert the atrial fibrillation into sinus rhythm by doing vasovagal maneuvers, unfortunately this was not successful. It did not work tonight, so the patient decided to come to the emergency room for further evaluation. The patient states she takes her medications correctly. She does take Coumadin and Rythmol. The only new medicine the patient takes is atorvastatin. SHe states she had an episode last night and one tonight. The episode tonight would not break to normal sinus rhythm. The episode last night converted quickly to normal sinus rhythm according to the patient. The previous nights event was able to be broken with a vasovagal maneuver. The one last night was unable to be broken and therefore she is here in the emergency department and then therefore listed observation Had been on a Cardizem drip which has been stopped Dr. LEONARDO has been counseled of cardiology An echocardiogram will give Lovenox 70 mg subcu now since her INR is only 1.8 CBC/BMP: 06/16/17 0200 06/16/17 0200 Significant Findings Laboratory Tests Test 06/16/17 02:00 06/16/17 08:08 06/16/17 13:50 Prothrombin Time 18.1 SEC (9.8-11.6) Estimat Glomerular Filtration Rate 67 ML/MIN (>89) Troponin I LESS THAN 0.02 NG/ML LESS THAN 0.02 NG/ML LESS THAN 0.02 NG/ML B-Type Natriuretic Peptide 111 PG/ML (0-100) Imaging Last Impressions Chest X-Ray 06/16/17 0158 Signed Impressions: Service Date/Time: June 02:12 - CONCLUSION: No acute cardiopulmonary abnormality is identified. Vijay Nelson MD Hospital Course Patient is a 76-year-old female with a history of paroxysmal atrial fibrillation who at 1130 last night noticed atrial fibrillation. Normally, she can convert the atrial fibrillation into sinus rhythm by doing vasovagal maneuvers, unfortunately this was not successful. It did not work tonight, so the patient decided to come to the emergency room for further evaluation. The patient states she takes her medications correctly. She does take Coumadin and Rythmol. The only new medicine the patient takes is atorvastatin. SHe states she had an episode last night and one tonight. The episode tonight would not break to normal sinus rhythm. The episode last night converted quickly to normal sinus rhythm according to the patient. The previous nights event was able to be broken with a vasovagal maneuver. The one last night was unable to be broken and therefore she is here in the emergency department and then therefore listed observation Had been on a Cardizem drip which has been stopped Dr. LEONARDO has been counseled of cardiology An echocardiogram will give Lovenox 70 mg subcu now since her INR is only 1.8 CLEARED BY CARDIOLOGY LATE LAST EVENING Atrial fibrillation paroxysmal on chronic Rythmol and chronic Coumadin and bisoprolol Continue anticoagulation We will add Lovenox 70 mg subcu twice daily since INR is only 1.8 and patient had been in A. 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 Restart home medications Hypertension we will resume her ARB Hyperlipidemia recently started on atorvastatin-- patient thinks this may have caused the atrial fibrillation Hypothyroidism continue on thyroid medication-we will check her thyroid Alcohol use monitor for any signs of withdrawal GI prophylaxis DVT prophylaxis with Coumadin and Lovenox CLEARED BY CARDIOLOGY Pt Condition on Discharge: Fair Discharge Disposition: Discharge Home Discharge Time: <= 30 minutes Discharge Instructions DIET: Follow Instructions for: Heart Healthy Diet Speech Therapy-Diet Recommends: Regular Activities you can perform: See Additionl Instruction Other Activity Instructions: as tolerated Follow up Referrals: Cardiology - 1 Week with Kathy Leonardo MD PCP Follow-up - 1 Week Continued Medications: Aspirin (Aspirin Low Dose) 81 Mg Chew 81 MG CHEW DAILY, TAB 0 Refills Atorvastatin (Atorvastatin) 40 Mg Tab 40 MG PO HS for Cholesterol Management, #30 TAB 0 Refills Bisoprolol (Bisoprolol) 5 Mg Tab 5 MG PO DAILY for Blood Pressure Management, #30 TAB 0 Refills Glucosamine (Glucosamine) 1,500 Mg Tab 1500 MG PO DAILY for Herbal Supplements, TAB 0 Refills Levothyroxine (Levothyroxine) 25 Mcg Tab 25 MCG PO DAILY for Thyroid, #30 TAB 0 Refills Losartan (Losartan) 100 Mg Tab 100 MG PO DAILY for Blood Pressure Management, #30 TAB 0 Refills Propafenone (Propafenone) 150 Mg Tab 150 MG PO Q8HR for Regulate Heart Beat, #90 TAB 0 Refills Warfarin (Warfarin) 5 Mg Tab 5 MG PO DAILY for Blood Clot Prevention, #30 TAB 0 Refills Jeremiah Armstrong DO Jun 17, 2017 08:25
[2017-06-17] MEDS ORDERED: PNEUMOCOCCAL POLYVALENT INJ 25 MCG/0.5 ML SYR IM ONE (10:00)
--- NOTE | 2017-06-17 10:18 | MB ---
cc: Kathy Lange MD DATE OF CONSULT: 06/16/2017 REASON FOR CONSULTATION: Recurrent atrial fibrillation with rapid ventricular response. HISTORY OF PRESENT ILLNESS: Ms. Toussaint is a pleasant 76-year-old female known to me with history of paroxysmal atrial fibrillation, hypertension, hyperlipidemia, hypothyroidism, was recently started on Lipitor. She has been having recurrent palpitations, but during her early hours of sleep and this woke her up last night and did not stop, and she was dizzy and lightheaded and for which she came to the emergency room, was found to be in atrial fibrillation with rapid ventricular response. She was started on intravenous Cardizem and then she converted back to sinus rhythm. Denies orthopnea, PND or leg swelling. ALLERGIES: CAFFEINE, MORPHINE, HYDROCHLOROTHIAZIDE, PROVENTIL AND LARGE DOSES OF ASPIRIN. I AM NOT SURE IF ALL OF THESE ARE ALLERGIES VERSUS SOME OF THEM ARE SIDE EFFECTS. FAMILY HISTORY: Positive for coronary artery disease and hypertension. Negative for diabetes or cancer. PAST MEDICAL AND SURGICAL HISTORY: Those mentioned above. History of osteoarthritis, C-sections in the past, cholecystectomy, left total knee replacement. Right partial knee arthroplasty in 2004. SOCIAL HISTORY: She used to smoke, but stopped 48 years ago. She has a 6 pack years of smoking history. Drinks 1-2 glasses of red wine every night. Has occasional decaffeinated beverages. Walks about 2 miles with no chest pain or shortness of breath. REVIEW OF SYSTEMS: A 12-point system review was unremarkable except for as mentioned in the History of Present Illness. PHYSICAL EXAMINATION: GENERAL: This is a 76-year-old lady, lying in a recliner next to her bed, in no apparent distress, alert and oriented x 3, answering questions appropriately. VITAL SIGNS: Shows blood pressure is 130/70 mmHg, pulse of 76 beats per minute and regular, respiration . HEENT: Shows head is normocephalic. Pupils are equal and reactive. Throat is within limits. NECK: Supple, no carotid bruits. No thyromegaly. No jugular vein distention, no . LUNG: Clear to auscultation and percussion. CARDIOVASCULAR: S1 and S2 are normal, with a faint S4 gallop. No rubs or murmurs. ABDOMEN: Lax, nontender. Normoactive bowel sounds. No organomegaly. No masses felt. EXTREMITIES: No clubbing, cyanosis or edema. Pulses 2+ bilaterally and no bruit noted. NEUROLOGIC: Grossly intact, with no focal deficits. RECTAL: Deferred. ECHOCARDIOGRAM: After she converted, was in sinus bradycardia at 52 beats per minute with incomplete heart bundle branch block, left anterior hemiblock and subtle Q waves and this really did not change from her prior tracing. QTc interval is 440. LABORATORY DATA: Sodium 140, potassium 36, magnesium 2.2, phosphorus 3.6, BUN of 18, creatinine 0.83. Troponin I x 3 is normal. CPK x 2 is normal. BNP is 111 and free T4 1.15 and TSH normal at 0.773. IMAGING: Chest x-ray was unremarkable. ASSESSMENT AND RECOMMENDATIONS: 1. Recurrent atrial fibrillation. She has a CHADS-VASc score of 3, with age and hypertension. Her INR was 1.8 and she is to cut down on her greens intake. The recurrent atrial fibrillation is not clear for the etiology. However, because it happened 3 night in a row during her sleep, we will need to rule out obstructive sleep apnea as an outpatient. a. She is currently in sinus rhythm and rhythm will be resumed. We will increase the night dose to 225 milligrams. Otherwise, she will continue on the 150 in the morning and the middle of the day. b. Continue current dose of Coumadin and this will be followed as an outpatient next week. c. She was advised to discontinue her alkaline intake. She does believe that atorvastatin is the cause of it and she wants to go back to simvastatin, which is fine and she will follow a strict diet and followup on her labs in 2 months. d. We will recheck her electrolytes, including her potassium because it is on the low side. 2. Hypertension controlled. 3. Hyperlipidemia as above. 4. 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 Echocardiogram from a year ago was unremarkable. 5. Recent mildly abnormal nuclear stress study, currently denies any chest pain. Troponins are normal. No ischemic changes on EKG. We will continue medical therapy with aggressive control of risk factors. 6. Overall, she is doing well and wants to go home and she can be discharged, with followup with me in the next 1-2 weeks. MD ERIKA Andrea , 08:37 PM , 10:28 PM
== END 2017-06-16 21:48 | disposition home or self-care (01) ==
LOC: PHED 01:31 → PHEDA 03:48 → PHICU 08:22
PROVIDERS: ADMIT Hospitalist; ATTEND Hospitalist
DX: I48.0 Paroxysmal atrial fibrillation (principal); R00.2 Palpitations; I45.2 Bifascicular block; R00.1 Bradycardia, unspecified; R94.31 Abnormal electrocardiogram [ECG] [EKG]; I10 Essential (primary) hypertension; E78.00 Pure hypercholesterolemia, unspecified; E03.9 Hypothyroidism, unspecified; D68.9 Coagulation defect, unspecified; M19.90 Unspecified osteoarthritis, unspecified site; Z79.01 Long term (current) use of anticoagulants; Z79.899 Other long term (current) drug therapy; Z79.82 Long term (current) use of aspirin; Z87.891 Personal history of nicotine dependence; Z96.652 Presence of left artificial knee joint
CPT/HCPCS: 71046; 80048; 82550; 83036; 83735; 83880; 84100; 84439; 84443; 84484; 85025; 85610; 93005; 96365; 96366; 96372; 96375; 99285; G0378; J1650